=== PATIENT | male | born 1985 | race Caucasian/White ===

== ENCOUNTER 2019-07-09 20:04 | Emergency (ER) | payer MEDICAID ==
[2019-07-09 20:15] VITALS: BP 149/78
[2019-07-09] MEDS ORDERED: IBUPROFEN 800 MG TABLET PO STA (20:25)
--- NOTE | 2019-07-09 20:27 | ED Physician Documentation ---
History of Present Illness - Stated complaint Stated Complaint: RUNNY NOSE, SCRATCHY THROAT - Chief complaint Chief Complaint: General - History obtained from History obtained from: Patient - History of Present Illness Timing: Today (33-year-old gentleman presents with multiple nonemergent complaints including he has a runny nose, he stubbed his toes, he has rib pain after golfing yesterday today, he is cold, and he is homeless. When pressed as to which of these complaints is the most pressing he vacillates and says I would just like some medications. When asked what kind of medications he would like he states something for pain and something for his head. I asked him what medications he has been on for psychiatric reasons in the past and he refuses to tell me stating that he was put on them falsely.) - Additonal information Additional information: He states he just moved to the [place] a few days ago, from [place]. When asked what prompted the move he starts to say how he was in the custody of police and he does not have any family in [place]. He admits to drinking a little bit tonight and also marijuana and tobacco use. Review of Systems Constitutional: denies: Fever, Chills Nose: reports: Rhinorrhea / runny nose Throat: reports: Sore throat Cardiac: denies: Chest pain / pressure, Palpitations Respiratory: denies: Dyspnea, Cough PD PAST MEDICAL HISTORY - Present Medications Home Medications: Ambulatory Orders Medication Instructions Recorded Confirmed Ibuprofen [Motrin] 800 mg PO Q8H PRN #14 tablet 07/09/19 - Allergies Allergies/Adverse Reactions: Allergies Allergy/AdvReac Type Severity Reaction Status Date / Time bee pollen Allergy Unknown Verified 07/09/19 20:15 PD ED PE NORMAL - Vitals Vital signs reviewed: Yes - General General: Alert and oriented X 3, No acute distress - HEENT HEENT: PERRL, EOMI, Ears normal, Moist mucous membranes, Pharynx benign - Neck Neck: Supple, no meningeal sign, No bony TTP - Cardiac Cardiac: RRR, No murmur - Respiratory Respiratory: No respiratory distress, Clear bilaterally - Abdomen Abdomen: Soft, Non tender - Back Back: No CVA TTP, No spinal TTP - Derm Derm: No rash - Neuro Neuro: Alert and oriented X 3, quality controller 2-12 intact, Normal speech Eye Opening: Spontaneous Motor: Obeys Commands Verbal: Oriented GCS Score: 15 Results - Vitals Vitals: Vital Signs - 24 hr 07/09/19 20:08 Temperature 36.6 C Heart Rate 78 Blood Pressure 149/78 H PD MEDICAL DECISION MAKING - ED course ED course: 33-year-old gentleman presents without apparent acute medical emergency. He does seem to have some level of Undifferentiated psychiatric illness, discussed with him that I would be uncomfortable just starting medications from the emergency department on this and advised him to follow-up with a psychiatrist. There is no indication for hospitalization or involuntary commitment. Departure - Departure Disposition: Home, Self Care Clinical Impression: Normal exam, Psychiatric symptoms Condition: Good Record reviewed to determine appropriate education?: Yes Follow-Up: [facility] [Provider Group] Prescriptions: Ibuprofen [Motrin] 800 mg PO Q8H PRN #14 tablet PRN Reason: PAIN &/OR FEVER Comments: Follow-up with [facility] at [phone] to schedule psychiatric care and counseling. Call your doctor to arrange a follow-up appointment, make the next available appointment. In the interim, return anytime if worse or if new symptoms develop.
== END 2019-07-09 20:34 | disposition home or self-care (01) ==
LOC: ED 20:04
DX: Z76.89 Persons encountering health services in other specified circumstances (principal)
CPT/HCPCS: 99282; 99284; A9270